=== PATIENT | male | born 1980 ===

== ENCOUNTER → 2025-04-12 14:56 | Outpatient (CLI) | payer OTHER, SELFPAY ==
--- NOTE | 2025-04-12 14:57 | DI.ECHO.S_ITS ---
[facility] : : [address] : : [place] : : [id number] : : Phone: [phone] Echocardiogram Report + + :Name: MANJINDER HOLLIDAY Study Date: 04/12/2025 Height: 69 in : :Hospital ReadingLocation: Weight: 164 lb : : Gender: Male BSA: 1.9 m2 : :: 1980 Age: 45 yrs BP: 115/80 mmHg: :Reason For Study: Abnormal ECG : :Ordering Physician: SELENA, : :SEDRICK Performed By: Vanessa Prince : :Referring: SEDRICK WALTERS : + + Interpretation Summary - The left ventricular contractility is normal. Estimated ejection fraction is greater than 55% with no segmental wall motion abnormalities. No LVH. Indeterminate diastolic function. - The right ventricular contractility is mildly compromised. - Mild left atrial enlargement. Moderate right ventricular enlargement. The right atrium and left ventricle are of normal size. - Mild tricuspid regurgitation with estimated pulmonary systolic artery pressures of 19 mmHg. - No obvious intracardiac shunts. - No obvious intracardiac masses nor thrombi. - No hemodynamically significant pericardial effusion. - Low right-sided filling pressures. - Borderline enlargement of the aortic root without obvious dissection. Conclusion: Normal left ventricular systolic function with mildly compromised right ventricular systolic function. Mild tricuspid regurgitation with no evidence of pulmonary hypertension. Procedure: A two-dimensional transthoracic echocardiogram with color flow and Doppler was performed. The study quality was technically adequate. There is no prior echocardiogram noted for this patient. The heart rate ranged between 66-77 bpm during the study. Left Ventricle: The left ventricle is normal in size and wall thickness. The ejection fraction is estimated to be 55-60%. Diastolic function is indeterminate. Right Ventricle: The right ventricle is moderately dilated. Right ventricular systolic function is mildly reduced. Atria: Borderline left atrial enlargement. Right atrial size is normal. The interatrial septum grossly appears intact with no obvious evidence for an atrial septal defect. Mitral Valve: The mitral valve is normal in structure and function. There is trace mitral regurgitation. Aortic Valve: The aortic valve is trileaflet. The aortic valve opens well. No aortic regurgitation is present. Tricuspid Valve: The tricuspid valve leaflets are thin and pliable. There is mild tricuspid regurgitation. Pulmonic Valve: The pulmonic valve is not well seen, but is grossly normal. There is trace pulmonic regurgitation. Great Vessels: The aortic root is borderline dilated. The ascending aorta is normal in size. The aortic arch is normal in size. The IVC is of normal diameter and collapses greater than 50% with a sniff. This suggests a low right atrial pressure of 3 mm Hg. Pericardium/ Pleura There is no pericardial effusion. There is no pleural effusion. MMode/2D Measurements & Calculations LVIDd: 5.0 cm LVOT diam: 2.3 cm LVIDs: 3.4 cm Ao root diam: 4.0 cm FS: 30.5 % asc Aorta Diam: 3.3 cm EPSS: 0.62 cm Ao Arch Diam (Prox Trans): 2.9 cm IVSd: 0.83 cm LVPWd: 1.1 cm LV ferrari. diameter/BSA (cm/m^2): 2.6 LV sys. diameter/BSA (cm/m^2): 1.8 LA A2 area: 22.1 cm2 RA long axis: 4.9 cm LA A4 area: 18.1 cm2 RA area: 16.9 cm2 LA length (vol): 4.7 cm RA vol: 49.5 ml LA vol: 71.9 ml RA : 26.1 ml/m2 LA vol index: 37.9 ml/m2 IVC diam: 1.8 cm RVD1 (basal): 4.5 cm Doppler Measurements & Calculations Ao V2 max: 112.7 cm/sec LVOT Max Jayden: 81.1 cm/sec Ao V2 mean: 75.9 cm/sec LV V1 max P.6 mmHg Ao max P.1 mmHg LV V1 VTI: 15.8 cm Ao mean P.7 mmHg JOSE CARLOS(I,D): 3.0 cm2 Ao V2 VTI: 23.0 cm JOSE CARLSO(V,D): 3.1 cm2 sev ratio: 0.69 JOSE CARLOS indexed to BSA (cm^2/m^2): 1.6 MV E max jayden: 50.5 cm/sec TR max jayden: 200.7 cm/sec MV A max jayden: 49.3 cm/sec TR max P.2 mmHg MV E/A: 1.0 PA V2 max: 72.7 cm/sec Med Peak E' Jayden: 8.1 cm/sec PA V2 mean: 48.4 cm/sec E/E' med: 6.2 PA mean P.1 mmHg Lat Peak E' Jayden: 6.3 cm/sec PA pr(Accel): 7.1 mmHg E/E' lat: 8.0 E/e' average: 7.1 MV dec time: 0.27 sec SVLVOT): 68.2 ml Reading Physician:TYESHA
== END ==
LOC: ECHO 14:57
PROVIDERS: PCP Family Medicine; Referring Provider Family Medicine; Visit Provider Family Medicine
DX: I07.1 Rheumatic tricuspid insufficiency (principal); R94.31 Abnormal electrocardiogram [ECG] [EKG]
CPT/HCPCS: 93306